=== PATIENT | female | born 1970 | race Caucasian/White ===

== ENCOUNTER 2023-11-03 09:53 | Emergency (ER) | payer OTHER, SELFPAY ==
[2023-11-03 09:55] VITALS: BP 108/59; PULSE 53; RESP 16; TEMP 36.8; O2SAT 98; BMI 25.6
--- NOTE | 2023-11-03 10:03 | ED.GENADULT ---
HPI - General Adult General Chief complaint: Extremity Injury, Upper Stated complaint: R shoulder injury Time Seen by Provider: 11/03/23 10:00 Source: patient Mode of arrival: Ambulatory Limitations: no limitations History of Present Illness HPI narrative: Patient is a 53-year-old female here for evaluation of right shoulder pain. Patient states yesterday while she was carrying a table up some stairs she felt a ripping sensation in her right shoulder along the outside and since that time has had significant discomfort. Right elbows unremarkable. Right wrist is unremarkable. She did not fall on her shoulder. She does have pain radiating around her shoulder but the discomfort seems to be right on the outside point of the shoulder. She has had difficulty moving her shoulder at all specifically above her head since the event. And trouble sleeping last night. It hurts to touch and also to move. Related Data Previous Rx's Medication Instructions Recorded hydrocodone 5 mg-acetaminophen 325 1 tab PO Q4-6H PRN pain #10 tabs 11/03/23 mg tablet Allergies Allergy/AdvReac Type Severity Reaction Status Date / Time metronidazole [From Flagyl] Allergy Verified 11/03/23 10:11 onabotulinumtoxinA Allergy Verified 11/03/23 10:11 [From Botox] Review of Systems Musculoskeletal Musculoskeletal: Reports system reviewed and no additional complaints, except as documented Integumentary/Breasts Skin/Breast: Reports system reviewed and no additional complaints, except as documented Neurologic Neurologic: Reports system reviewed and no additional complaints, except as documented Exam Initial Vital Signs Initial Vital Signs: Vital Signs Temperature 98.3 F 11/03/23 09:55 Pulse Rate 53 L 11/03/23 09:55 Respiratory Rate 16 11/03/23 09:55 Blood Pressure 108/59 L 11/03/23 09:55 Pulse Oximetry 98 11/03/23 09:55 Oxygen Delivery Method Room Air 11/03/23 09:55 Cardio Pulses: radial pulses present on the right Skin General: no rashes or lesions noted Neuro Sensory Exam: no sensory deficits noted Extrem Other: Right elbow and right wrist unremarkable. Patient has tenderness to palpation over the proximal portion of the right deltoid muscle. There was no deficits in the muscle noted. No tenderness over the biceps tendon. Right clavicle is unremarkable. No tenderness over the scapula. No tenderness over the AC joint. Discomfort over the lateral aspect of the right deltoid to palpation or movement. Course Orders Ordered: ED Orders 11/03/23 10:03 XR shoulder RT min 2V Stat Discontinued Medications Hydromorphone HCl (Hydromorphone 1 Mg Inj) 1 mg IM NOW ONE Stop: 11/03/23 10:04 Last Admin: 11/03/23 10:12 Dose: 1 mg Ketorolac Tromethamine (Ketorolac 30 Mg/Ml Vial) 30 mg IM NOW ONE Stop: 11/03/23 10:04 Last Admin: 11/03/23 10:13 Dose: 30 mg Vital Signs Vital signs: Vital Signs - 8 hr 11/03/23 09:55 Temperature 98.3 F Pulse Rate 53 L Respiratory Rate 16 Blood Pressure 108/59 L Pulse Oximetry 98 Oxygen Delivery Method Room Air Medical Decision Making Imaging Data Extremity x-ray #1: Radiologist's Impression: PROCEDURE: XR SHOULDER RT MIN 2V INDICATIONS: lateral deltoid pain after twisting injury TECHNIQUE: 3 views of the shoulder were acquired. COMPARISON: None. FINDINGS: Bones: No fractures or dislocations. No suspicious bony lesions. Visualized ribs appear intact. Age-appropriate bony degenerative changes are seen. Soft tissues: Calcific tendinopathy is seen. The visualized lung demonstrates an unremarkable appearance. IMPRESSION: No po acute abnormality is seen. Underlying degenerative changes are seen, including calcific tendinopathy. If it would be helpful for clinical management decision making, please consider a dedicated, scheduled shoulder MRI for further evaluation (assuming that there is no contraindication). MDM Narrative Medical decision making narrative: Patient is neurovascularly intact. Afebrile. X-ray shows no signs of fracture or dislocation. I do suspect soft tissue injury to include potentially muscle injury. Discuss this with the patient. Conservative measures for now. Pain medication to her pharmacy, sling as tolerated. Recommended that she follow up with her primary doctor to discuss further evaluation and potential referral to physical therapy. She expressed understanding and agreement. Discharge Plan Departure Patient Disposition: Home Clinical Impression: Pain in right shoulder Instructions: How To Perform RICE (Rest, Ice, Compress, Elevate) Activity Restrictions/Additional Instructions: The x-rays today did not show any signs of a fracture or dislocation. Recommend that you continue with conservative measures to include ice, avoiding activities that make the discomfort worse, pain medication and anti-inflammatories. If your symptoms do not improve within the next several days contact your primary care doctor as you may need more evaluation to include referral to physical therapy or other advanced imaging. Prescriptions: New hydrocodone-acetaminophen 5-325 mg tablet 1 tab PO Q4-6H PRN (Reason: pain) Qty: 10 0RF Stand Alone Forms: Patient Portal/API
[2023-11-03] MEDS: HYDROMORPHONE 1 MG INJ IM (10:12)
[2023-11-03] MEDS: KETOROLAC 30 MG/ML VIAL IM (10:13)
[2023-11-03 10:57] VITALS: BP 106/59; PULSE 53; RESP 16; O2SAT 97
== END 2023-11-03 10:58 | disposition home or self-care (01) ==
PROVIDERS: Emergency Provider Emergency Medicine
DX: M25.511 Pain in right shoulder (principal)
CPT/HCPCS: 73030; 96372; 99283; J1170; J1885

== ENCOUNTER 2024-11-30 08:28 | Emergency (ER) | payer OTHER, SELFPAY ==
[2024-11-30] VITALS (9 sets, daily range): BP systolic 94–109; BP diastolic 51–59; PULSE 59–70; RESP 12–18; TEMP 36.7; O2SAT 97–100; BMI 26.2
--- NOTE | 2024-11-30 09:04 | ED_ITS ---
HPI - GI Bleed General Chief complaint: GI Bleed Stated complaint: blood in stool Time Seen by Provider: 11/30/24 08:50 Source: patient Mode of arrival: Ambulatory History of Present Illness HPI Narrative: 54-year-old female history of anal fissure and hemorrhoids, precancerous polyp removed last year from colonoscopy presents with dark diarrhea starting Saturday evening along with nausea no vomiting. She has continued to have dark diarrhea with some bright red bleeding with her stool sample. She ate the same meal as her on Saturday evening is asymptomatic. No known sick contacts. Not on any blood thinneers or anticoagulants. She is complaining of abdominal cramping at this time or urinary complaints. Denies fever chills body aches or throat cough. Other than what is stated 14 point review of system is negative. Related Data Previous Rx's ?Medication ?Instructions ?Recorded hydrocodone 5 mg-acetaminophen 325 1 tab PO Q4-6H PRN pain #10 tabs 11/03/23 mg tablet Allergies Allergy/AdvReac Type Severity Reaction Status Date / Time metronidazole (From Flagyl) Allergy Verified 11/30/24 08:40 onabotulinumtoxinA (From Allergy Verified 11/30/24 08:40 Botox) Review of Systems Review of Systems ROS Unobtainable: All systems reviewed & are unremarkable except as noted in HPI and below Patient History Social History Smoking Status: Never smoker Smoking Status: Never smoker Exam Narrative Exam Narrative: GENERAL: [54] year old patient appears stated age. Well-developed patient, in mild distress. HEAD: Atraumatic. Normocephalic. EYES: Pupils equal round and reactive. Extraocular motions intact. No scleral icterus. No injection or drainage. ENT: Nose without bleeding, purulent drainage. Throat without erythema, tonsillar hypertrophy or exudate. Airway patent. NECK: Trachea midline. Non tender CARDIOVASCULAR: Regular rate and rhythm without murmurs, gallops, or rubs. RESPIRATORY: Clear to auscultation. Breath sounds equal bilaterally. No wheezes, rales, or rhonchi. GASTROINTESTINAL: Abdomen soft, non-tender, nondistended. Rectum: No fissure or hemorrhoids seen. Guaiac neg EXTREMITIES: No edema or joint tenderness. BACK: Nontender without deformity or crepitance. No flank tenderness. NEURO: AOx3. SKIN: No rash or erythema of visible areas Initial Vital Signs Initial Vital Signs: Vital Signs Temperature 98.1 F 11/30/24 08:40 Pulse Rate 70 11/30/24 08:40 Respiratory Rate 16 11/30/24 08:40 Blood Pressure 109/55 L 11/30/24 08:40 Pulse Oximetry 97 11/30/24 08:40 Oxygen Delivery Method Room Air 11/30/24 08:40 Course Orders Ordered: ED Orders 11/30/24 08:38 Complete Blood Count AUTO DIFF Stat Comprehensive Metabolic Panel Stat Lipase Stat 11/30/24 09:03 CT angio Abd/Pel GI Bleed Stat 11/30/24 09:08 Stool Culture Stat 11/30/24 09:14 Urine Culture Stat Urine Microscopic Stat 11/30/24 12:03 Urine Culture Stat Lactated Ringer's (Lactated Ringers) 1,000 mls @ 1,000 mls/hr IV BOLUS ONE Stop: 11/30/24 12:38 Last Admin: 11/30/24 11:50 Dose: 1,000 mls/hr Documented By: SHERYL Ondansetron HCl (Ondansetron 4 Mg/2 Ml Inj) 4 mg IV NOW PRN PRN Reason: Nausea And Vomiting Ondansetron HCl (Ondansetron 4 Mg Odt) 4 mg PO NOW PRN PRN Reason: Nausea And Vomiting Discontinued Medications Acetaminophen (Acetaminophen 325 Mg Tablet) 975 mg PO NOW ONE Stop: 11/30/24 11:40 Last Admin: 11/30/24 11:50 Dose: 975 mg Documented By: SHERYL Lactated Ringer's (Lactated Ringers) 1,000 mls @ 1,000 mls/hr IV BOLUS ONE Stop: 11/30/24 10:02 Last Infusion: 11/30/24 10:27 Dose: Infused Documented By: Admin: 11/30/24 09:33 Dose: 1,000 mls/hr Documented By: SHERYL Lactated Ringer's (Lactated Ringers) 1,000 mls @ 1,000 mls/hr IV BOLUS ONE Stop: 11/30/24 11:27 Last Infusion: 11/30/24 11:56 Dose: Infused Documented By: Admin: 11/30/24 10:32 Dose: 1,000 mls/hr Documented By: SHERYL Ketorolac Tromethamine (Ketorolac 30 Mg/Ml Vial) 15 mg IV NOW ONE Stop: 11/30/24 09:04 Last Admin: 11/30/24 09:33 Dose: 15 mg Documented By: SHERYL Vital Signs Vital signs: Vital Signs - 8 hr 11/30/24 08:40 11/30/24 10:15 11/30/24 10:30 Temperature 98.1 F Pulse Rate 70 62 Respiratory Rate 16 Blood Pressure 109/55 L 94/51 L Pulse Oximetry 97 100 Oxygen Delivery Method Room Air 11/30/24 10:30 11/30/24 10:45 11/30/24 10:45 Temperature Pulse Rate 59 L 59 L Respiratory Rate 12 12 Blood Pressure 98/57 L Pulse Oximetry 100 100 Oxygen Delivery Method 11/30/24 11:00 11/30/24 11:00 11/30/24 11:54 Temperature Pulse Rate 62 61 Respiratory Rate 18 Blood Pressure 101/59 L Pulse Oximetry 100 98 Oxygen Delivery Method 11/30/24 12:00 Temperature Pulse Rate 63 Respiratory Rate Blood Pressure Pulse Oximetry 100 Oxygen Delivery Method MDM - GI Bleed Lab Data 11/30/24 08:38 11/30/24 08:38 Labs: Lab Results 11/30/24 11/30/24 Range/Units 08:38 09:14 WBC 7.5 (4.5-11.0) X10^3/uL RBC 4.66 (4.0-5.2) X10^6/uL Hgb 14.3 (12.0-16.0) g/dL Hct 41.6 (36-46) % MCV 89.3 (80-100) fL MCH 30.6 (26-34) PG MCHC 34.3 (30-36) % RDW 13.0 (11.6-14.8) % Plt Count 202 (150-400) X10^3/uL Neut % (Auto) 67.0 (50-75) % Lymph % (Auto) 25.5 (25-40) % [place] % (Auto) 6.1 (3-14) % Eos % (Auto) 0.7 L (2-4) % Baso % (Auto) 0.7 (0-2) % Neut # (Auto) 5000 (8035-5020) /uL Lymph # (Auto) 1900 (2957-7279) /uL [place] # (Auto) 500 (0-900) /uL Eos # (Auto) 100 (0-450) /uL Baso # (Auto) 100 (0-100) /uL Sodium 138 (137-145) mmol/L Potassium 4.0 (3.4-5.1) mmol/L Chloride 105 (98-107) mmol/L Carbon Dioxide 27 (22-32) mmol/L BUN 8 (7-17) mg/dL Creatinine 0.69 (0.52-1.04) mg/dL Estimated GFR > 60 (>60) mL/min BUN/Creatinine Ratio 11.6 (6-22) Glucose 84 (70-99) mg/dL Calcium 8.9 (8.4-10.2) mg/dL Total Bilirubin 0.7 (0.2-1.3) mg/dL AST 44 H (14-36) IU/L ALT 26 (<35) IU/L Alkaline Phosphatase 78 (38-126) U/L Total Protein 7.4 (6.3-8.2) g/dL Albumin 4.3 (3.5-5.0) g/dL Globulin 3.1 (1.7-4.1) g/dL Albumin/Globulin Ratio 1.4 (1.0-2.8) Lipase 89 (23-300) U/L Urine RBC None seen (0-5/HPF) Urine WBC None seen (0-5/HPF) Ur Squamous Epith Cells 1-5 /hpf (0-5/HPF) Urine Bacteria Many (>30) H (None) Ur Culture Indicated? Specimen cultured Vol Urine Centrifuged 10ml (spun) Urine Dip Bedside Urine Glucose Negative Bedside Urine Bilirubin - Negative Bedside Urine Ketone - Negative Urine Specific Blue 1.010 Bedside Urine Occult Blood - Negative Bedside Urine pH 6.5 Bedside Urine Protein - Negative Bedside Urine Urobilinogen - Negative Bedside Urine Nitrite - Negative Bedside Urine Leukocytes - Negative Esterase Imaging Data CT scan - abdomen/pelvis: Radiologist's Impression: [address] [id number] [address] Scan Report Signed Patient: Katherine Ordoñez MR#: [id number] : 1970 Acct:[id number] Age/Sex: 54 / F Date of Service: 11/30/24 Loc: ED Accession Number: [id number] Procedure: CT angio Abd/Pel GI Bleed Ordering Provider: Tomi Manrique D.O. PROCEDURE: CT ANGIO ABD/PEL GI BLEED INDICATIONS: GI BLEED/ BLOOD DIARRHEA TECHNIQUE: After the administration of intravenous contrast, 2.5 mm sections acquired from the diaphragm to the iliac crests. 10 mm maximum intensity projection (MIP) coronal and sagittal reformats were then performed. For radiation dose reduction, the following was used: automated exposure control. COMPARISON: None. FINDINGS: Image quality: Diagnostic. Abdominal aorta: No aortic aneurysm or evidence of acute aortic syndrome. Mesenteric arteries: Patent without hemodynamically significant stenosis. No area of active contrast extravasation. Renal arteries: Patent without hemodynamically significant stenosis. Lower chest: Unremarkable. ABDOMEN: Liver: No solid mass. Well-circumscribed hypodensities are seen scattered in liver parenchyma likely represent hepatic cysts. Gallbladder: No radiopaque gallstones or wall thickening. Biliary ducts: No biliary dilation. Pancreas: No ductal dilation. Spleen: Size is within normal limits. Adrenal Glands: No adrenal nodules. Kidneys and Ureters: No hydronephrosis. No solid mass. No complex renal cystic lesion which requires follow up. Stomach and Bowel: Diffuse colonic wall thickening involving distal ascending colon, transverse colon, descending colon and sigmoid colon is seen with narrowing of the lumen and mild pericolonic fat stranding. No area of abnormal contrast accumulation. No abscess collection. No gastric or small bowel wall thickening. Peritoneum: No abnormal intraperitoneal fluid. No free air. Ventral Wall: No hernia. Abdominal Nodes: No retroperitoneal or mesenteric adenopathy by size criteria. Vessels: Aorta, as above. Normal IVC. PELVIS: Pelvic Organs: Unremarkable. Bladder: Unremarkable. Pelvic Nodes: No enlarged lymph nodes. Miscellaneous: No inguinal hernias are seen. Bones: No aggressive osseous abnormality. IMPRESSION: 1. No site of active GI bleed is identified at this time. 2. No aortic aneurysm or dissection. Mesenteric vessels and renal arteries are patent without hemodynamically significant stenosis. No area of active contrast extravasation. 3. Fairly extensive colonic wall thickening as above suggestive of infectious or inflammatory colitis. No abscess collection. No free fluid or free air. 4. Likely hepatic cysts scattered in right and left hepatic lobes. No gross solid appearing hepatic lesion. 5. No obstructing stones or hydronephrosis. MDM Narrative Medical decision making narrative: Vital signs, nurse triage note, medication list, previous ER visits, and all imaging studies reviewed. No site of active bleeding no aortic aneurysm or dissection and renal arteries are patent without hemodynamic significant stenosis. No area of active contrast extravasation. Fairly extensive colonic wall thickening suggestive of infectious or inflammatory colitis. No abscess collection. NO Free air or free fluid. Hepatic cysts no no gross solid appearing hepatic lesion. No obstructing stone or hydronephrosis. Normal CBC normal CMP accept AST 44 urine showed many bacteria otherwise normal. Differential diagnosis include infectious diarrhea, diverticulitis pancreatitis, kidney abscess, kidney infection. DC home clear liquid diet advance as tolerated Discharge Plan Departure Patient Disposition: Home Clinical Impression: Colitis Instructions: DI for Colitis Activity Restrictions/Additional Instructions: Return with new or worsening symptoms. Keep hydrated. Clear liquid diet advance as tolerated. Follow up PCP in 1-2 weeks if no improvement in symptoms. Prescriptions: No Action hydrocodone-acetaminophen 5-325 mg tablet 1 tab PO Q4-6H PRN (Reason: pain) Qty: 10 0RF Stand Alone Forms: Patient Portal/API
[2024-11-30 09:14] LABS: Add Manual Diff / Slide Review NO; Hematocrit 41.6 % (36-46); Hemoglobin 14.3 g/dL (12.0-16.0); Lymphocytes Absolute Auto 1900 /uL (1100-4500); Mean Corpuscular HGB Conc 34.3 % (30-36); Mean Corpuscular Hemoglobin 30.6 PG (26-34); Mean Corpuscular Volume 89.3 fL (80-100); Platelet Count 202 X10^3/uL (150-400)
[2024-11-30 09:24] LABS: Alanine Aminotransferase 26 IU/L (<35); Albumin 4.3 g/dL (3.5-5.0); Albumin Globulin Ratio 1.4 (1.0-2.8); Alkaline Phosphatase 78 U/L (38-126); Blood Urea Nitrogen 8 mg/dL (7-17); Calcium 8.9 mg/dL (8.4-10.2); Carbon Dioxide 27 mmol/L (22-32); Chloride 105 mmol/L (98-107); Estimated Glomerular Filt Rate > 60 mL/min (>60); Globulin 3.1 g/dL (1.7-4.1); Glucose 84 mg/dL (70-99); HEMOLYSIS < 15 (0-50); Lipase 89 U/L (23-300); Potassium 4.0 mmol/L (3.4-5.1); Sodium 138 mmol/L (137-145); Total Protein 7.4 g/dL (6.3-8.2)
[2024-11-30] MEDS: KETOROLAC 30 MG/ML VIAL 15 MG IV (09:33)
[2024-11-30] MEDS: LACTATED RINGERS 1,000 ML 1000 ML IV ×3 (09:33→11:50)
[2024-11-30 09:36] LABS: Culture Indicated Urine Specimen Cultured
[2024-11-30] MEDS: ACETAMINOPHEN 325 MG TABLET 975 MG PO (11:50)
== END 2024-11-30 13:06 | disposition home or self-care (01) ==
PROVIDERS: Emergency Provider Family Medicine
DX: K52.9 Noninfective gastroenteritis and colitis, unspecified (principal)
CPT/HCPCS: 36415; 74174; 80053; 81003; 81015; 83690; 85025; 87086; 96361; 96374; 99284; J1885; Q9967